=== PATIENT | male | born 1940 | race African-American/Black ===

== ENCOUNTER → 2018-10-21 | Outpatient (CLI) | payer MEDICARE, MEDICAID ==
[~2018-10-21] MED LIST: ALBUTEROL(0.042%) 1.25 MG/3 ML NEB INH ONE; AMLODIPINE; ESCITALOPRAM; FAMOTIDINE; FLAGYL; LISINOPRIL; METFORMIN; METOCLOPRAMIDE; OMEPRAZOLE; PEPCID; PRILOSEC; RISPERIDONE; TRAZADONE
== END | disposition home or self-care (01) ==
LOC: PF 12:56
PROVIDERS: ATTEND Nurse Practitioner Family
DX: J44.9 Chronic obstructive pulmonary disease, unspecified (principal)
CPT/HCPCS: 94060; 94727; 94729; J7611